=== PATIENT | female | born 1945 | race Asian ===

== ENCOUNTER 2018-04-21 10:20 | Day surgery (SDC) | payer OTHER ==
[2018-04-21] MEDS ORDERED: PROPOFOL 20 ML (13:15)
== END 2018-04-21 16:09 | disposition home or self-care (01) ==
LOC: GIL 10:20
DX: Z12.11 Encounter for screening for malignant neoplasm of colon (principal); K64.8 Other hemorrhoids; E78.5 Hyperlipidemia, unspecified; E11.9 Type 2 diabetes mellitus without complications
CPT/HCPCS: 45378; 82962